=== PATIENT | female | born 1950 | race Caucasian/White ===

== ENCOUNTER 2017-08-27 09:06 | Emergency (ER) | payer OTHER ==
[~2017-08-27] VITALS: Ht 149.9 cm; Wt 54.0 kg
[~2017-08-27 09:06] MED LIST: BACT800T5 PO; CELE100C PO; OMPR20CCR PO; VENTAER INH
[2017-08-27 09:16] VITALS: BP 145/84; PULSE 78; RESP 16; TEMP 97.9; O2SAT 95
[2017-08-27] MEDS ORDERED: PRIL20TA2 PO (09:26)
[2017-08-27] MEDS ORDERED: PROPARACAINE HCL 0.5% OPHT SOLN 15 ML BTL EACH EYE ONE (09:30)
[2017-08-27] MEDS ORDERED: FLUORESCEIN SOD 1 MG STRIP EACH EYE ONE (09:30)
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
[2017-08-27] MEDS ORDERED: TRIMSOL LEFT EYE (10:09)
== END 2017-08-27 10:23 | disposition home or self-care (01) ==
LOC: PHEFT 09:06
DX: H10.32 Unspecified acute conjunctivitis, left eye (principal); F32.9 Major depressive disorder, single episode, unspecified; J44.9 Chronic obstructive pulmonary disease, unspecified; F41.9 Anxiety disorder, unspecified; K21.9 Gastro-esophageal reflux disease without esophagitis
CPT/HCPCS: 99283